=== PATIENT | male | born 1980 | race Two or more races ===

== ENCOUNTER 2018-04-05 01:19 | Inpatient (IN) | payer MEDICAID ==
[~2018-04-05] VITALS: Ht 167.6 cm; Wt 125.6 kg
[2018-04-05] MEDS ORDERED: LURA20TA PO (02:23)
[2018-04-05] MEDS ORDERED: TRAZ-219 PO (02:23)
[2018-04-05 04:21] LABS: BASOPHILS % (AUTO) 0.8 % (0.0-2.0); EOSINOPHILS % (AUTO) 0.9 % (1.0-6.0); HEMATOCRIT 46.2 % (41-53); HEMOGLOBIN 16.2 g/dL (13.5-17.5); LYMPHOCYTES # (AUTO) 1.5 K/uL (1.0-4.8); LYMPHOCYTES % (AUTO) 21.8 % (22.0-44.0); MEAN CORPUSCULAR HEMOGLOBIN 32.3 pg (26.0-34.0); MEAN CORPUSCULAR HGB CONC 35.1 G/dL (31.0-37.0); MEAN CORPUSCULAR VOLUME 92 fL (80-100); MONOCYTES # (AUTO) 0.4 K/uL (0.1-1.0); MONOCYTES % (AUTO) 6.4 % (2.0-9.0); NEUTROPHILS # (AUTO) 4.9 K/uL (1.8-7.7); NEUTROPHILS % (AUTO) 70.1 % (40.0-70.0); PLATELET COUNT (AUTO) 185 K/uL (150-450); RED BLOOD CELL COUNT(AUTO) 5.02 MIL/uL (4.50-5.90); RED CELL DISTRIBUTION WIDTH 13.2 % (11.5-14.5)
[2018-04-05 04:32] LABS: ANION GAP 9 mmol/L (8-16); CALCIUM, TOTAL 8.2 mg/dL (8.8-10.5); CARBON DIOXIDE 24 mmol/L (22-29); CHLORIDE 102 mmol/L (98-107); CREATININE 1.02 mg/dL (0.60-1.30); GLOMERULAR FILTR. RATE CALC > 60 mL/min (>60); GLUCOSE,RANDOM 169 mg/dL (70-110); POTASSIUM 3.8 mmol/L (3.5-5.1); SODIUM SERUM 135 mmol/L (136-145); UREA NITROGEN, BLOOD 14 mg/dL (7-18)
[2018-04-05 04:38] LABS: ALANINE AMINOTRANSFERASE 230 U/L (12-78); ALBUMIN 3.9 g/dL (3.4-5.0); ALKALINE PHOSPHATASE 67 U/L (46-116); ASPARTATE AMINOTRANSFERASE 93 U/L (15-37); BILIRUBIN,TOTAL 0.3 mg/dL (0.1-1.0)
[2018-04-05] MEDS ORDERED: HALOPERIDOL LACTATE 5 MG/ML VIAL IM ONE (07:45)
[2018-04-05] MEDS ORDERED: LORazepam 2 MG/ML VIAL IM ONE (07:45)
[2018-04-05] MEDS ORDERED: DiphenhydrAMINE HCL 50 MG/ML VIAL IM ONE (07:45)
[2018-04-05 08:36] LABS: AMPHET/METH SCREEN,URINE NEGATIVE (NEGATIVE); BARBITURATE SCREEN, URINE NEGATIVE (NEGATIVE); BENZODIAZEPINES SCREEN,URINE NEGATIVE (NEGATIVE); CANNABINOID SCREEN,URINE NEGATIVE (NEGATIVE); COCAINE SCREEN,URINE NEGATIVE (NEGATIVE); METHADONE SCREEN, URINE NEGATIVE (NEGATIVE); OPIATE SCREEN,URINE NEGATIVE (NEGATIVE)
[2018-04-05 08:45] LABS: PHENCYCLIDINE SCREEN,URINE NEGATIVE (NEGATIVE)
[2018-04-05] MEDS ORDERED: ZOLPIDEM TARTRATE 10 MG TABLET PO PRN (10:15)
[2018-04-05] MEDS ORDERED: ACETAMINOPHEN 325 MG TABLET PO PRN (10:15)
[2018-04-05] MEDS ORDERED: LORazepam 2 MG TABLET PO PRN (10:15)
[2018-04-05] MEDS ORDERED: HALOPERIDOL 5 MG TABLET PO PRN (10:15)
[2018-04-05 11:24] LABS: APPEARANCE,URINE CLEAR (CLEAR); BILIRUBIN,URINE NEGATIVE (NEGATIVE); GLUCOSE, URINE (UA) 250 mg/dL (NEGATIVE); KETONES,URINE TRACE mg/dL (NEGATIVE); LEUKOCYTE ESTERASE ,URINE NEGATIVE (NEGATIVE); NITRATE,URINE NEGATIVE (NEGATIVE); OCCULT BLOOD,URINE TRACE (NEGATIVE); PH,URINE 5.5 (5.0-8.0); PROTEIN,URINE NEGATIVE (NEGATIVE)
[2018-04-05 11:44] LABS: BACTERIA,URINE Rare /HPF (None Seen); RBC,URINE 0-2 /HPF (0-2); SQUAMOUS EPITHELIAL CELL,UR Few /LPF (None Seen)
[2018-04-05 16:22] VITALS: BP 139/77
[2018-04-05] MEDS: HALOPERIDOL 5 MG TABLET PO PRN (16:32)
[2018-04-05] MEDS: LORazepam 2 MG TABLET PO PRN (16:32)
[2018-04-06 06:24] VITALS: BP 137/85
[2018-04-06 08:18] VITALS: BP 126/73
[2018-04-06 08:36] LABS: BASOPHILS % (AUTO) 0.9 % (0.0-2.0); EOSINOPHILS % (AUTO) 3.9 % (1.0-6.0); HEMATOCRIT 44.3 % (41-53); HEMOGLOBIN 15.9 g/dL (13.5-17.5); LYMPHOCYTES # (AUTO) 1.6 K/uL (1.0-4.8); LYMPHOCYTES % (AUTO) 25.6 % (22.0-44.0); MEAN CORPUSCULAR HGB CONC 35.9 G/dL (31.0-37.0); MEAN CORPUSCULAR VOLUME 92 fL (80-100); MONOCYTES # (AUTO) 0.4 K/uL (0.1-1.0); MONOCYTES % (AUTO) 6.8 % (2.0-9.0); NEUTROPHILS % (AUTO) 62.8 % (40.0-70.0); PLATELET COUNT (AUTO) 169 K/uL (150-450); RED BLOOD CELL COUNT(AUTO) 4.82 MIL/uL (4.50-5.90); RED CELL DISTRIBUTION WIDTH 13.1 % (11.5-14.5)
[2018-04-06 08:54] LABS: HEMOGLOBIN A1C 6.3 % (4.5-6.2)
[2018-04-06 09:14] LABS: ALANINE AMINOTRANSFERASE 203 U/L (12-78); ALBUMIN 3.5 g/dL (3.4-5.0); ALKALINE PHOSPHATASE 62 U/L (46-116); ANION GAP 6 mmol/L (8-16); ASPARTATE AMINOTRANSFERASE 149 U/L (15-37); BILIRUBIN,TOTAL 0.9 mg/dL (0.1-1.0); CALCIUM, TOTAL 8.8 mg/dL (8.8-10.5); CARBON DIOXIDE 28 mmol/L (22-29); CHLORIDE 101 mmol/L (98-107); CHOL/HDL RATIO 5.8 (4.2-7.3); CHOLESTEROL 243 mg/dL (131-200); CREATININE 0.78 mg/dL (0.60-1.30); GLOMERULAR FILTR. RATE CALC > 60 mL/min (>60); GLUCOSE,RANDOM 122 mg/dL (70-110); HDL CHOLESTEROL 42 mg/dL (40-60); LDL CHOL (CALC.) 173 mg/dL (0-130); POTASSIUM 4.1 mmol/L (3.5-5.1); SODIUM SERUM 135 mmol/L (136-145); TRIGLYCERIDES 139 mg/dL (15-150); UREA NITROGEN, BLOOD 11 mg/dL (7-18)
[2018-04-06] MEDS: LORazepam 2 MG TABLET PO PRN ×2 (09:58→16:56)
[2018-04-06] MEDS: HALOPERIDOL 5 MG TABLET PO PRN ×2 (09:58→16:56)
[2018-04-06 12:02] LABS: THYROID STIMULATING HORMONE 147.25 uIU/mL (0.36-3.74)
[2018-04-06 16:00] VITALS: BP 109/70
[2018-04-06] MEDS: ZIPRASIDONE HCL 60 MG CAPSULE PO SCH (16:56)
[2018-04-06 21:43] LABS: GLUCOMETER DEV NAME(LOC) BV3N5; GLUCOSE,POINT OF CARE 115 MG/DL (70-110)
[2018-04-07] MEDS: ZOLPIDEM TARTRATE 10 MG TABLET PO PRN ×2 (02:54→21:57)
[2018-04-07 03:00] VITALS: BP_SYST 67
[2018-04-07] MEDS: MetFORMIN HCL 500 MG TABLET PO SCH (06:22)
[2018-04-07] MEDS: LEVOTHYROXINE SODIUM 150 MCG TABLET PO SCH (06:23)
[2018-04-07 06:24] LABS: GLUCOMETER DEV NAME(LOC) BV3N5; GLUCOSE,POINT OF CARE 130 MG/DL (70-110)
[2018-04-07 08:07] VITALS: BP 140/78
[2018-04-07] MEDS: LORazepam 2 MG TABLET PO PRN (09:02)
[2018-04-07] MEDS: HALOPERIDOL 5 MG TABLET PO PRN (09:02)
[2018-04-07 16:45] VITALS: BP 109/62
[2018-04-07] MEDS: ZIPRASIDONE HCL 60 MG CAPSULE PO SCH (16:45)
[2018-04-08 01:28] VITALS: BP 125/92
[2018-04-08 06:23] LABS: GLUCOMETER DEV NAME(LOC) BV3N5; GLUCOSE,POINT OF CARE 128 MG/DL (70-110)
[2018-04-08] MEDS: MetFORMIN HCL 500 MG TABLET PO SCH (06:27)
[2018-04-08] MEDS: LEVOTHYROXINE SODIUM 150 MCG TABLET PO SCH (06:39)
[2018-04-08 08:13] VITALS: BP 130/76
[2018-04-08] MEDS: LORazepam 2 MG TABLET PO PRN ×2 (08:41→14:53)
[2018-04-08] MEDS: HALOPERIDOL 5 MG TABLET PO PRN ×2 (08:41→14:53)
[2018-04-08 16:08] VITALS: BP 155/73
[2018-04-08] MEDS: ZIPRASIDONE HCL 60 MG CAPSULE PO SCH (16:29)
[2018-04-08 16:54] LABS: GLUCOMETER DEV NAME(LOC) BV3N5; GLUCOSE,POINT OF CARE 169 MG/DL (70-110)
[2018-04-08] MEDS: ZOLPIDEM TARTRATE 10 MG TABLET PO PRN (21:35)
[2018-04-09 06:14] LABS: GLUCOMETER DEV NAME(LOC) BV3N5; GLUCOSE,POINT OF CARE 126 MG/DL (70-110)
[2018-04-09] MEDS: MetFORMIN HCL 500 MG TABLET PO SCH (06:21)
[2018-04-09] MEDS: LEVOTHYROXINE SODIUM 150 MCG TABLET PO SCH (06:21)
[2018-04-09 06:25] VITALS: BP 128/75
[2018-04-09] MEDS: HALOPERIDOL 5 MG TABLET PO PRN ×3 (07:17→18:08)
[2018-04-09] MEDS: LORazepam 2 MG TABLET PO PRN ×3 (07:17→18:08)
[2018-04-09 08:33] VITALS: BP 141/83
[2018-04-09 09:16] LABS: ANION GAP 7 mmol/L (8-16); CALCIUM, TOTAL 8.9 mg/dL (8.8-10.5); CARBON DIOXIDE 29 mmol/L (22-29); CHLORIDE 100 mmol/L (98-107); CREATININE 0.85 mg/dL (0.60-1.30); GLOMERULAR FILTR. RATE CALC > 60 mL/min (>60); GLUCOSE,RANDOM 107 mg/dL (70-110); POTASSIUM 4.2 mmol/L (3.5-5.1); SODIUM SERUM 136 mmol/L (136-145); UREA NITROGEN, BLOOD 10 mg/dL (7-18)
[2018-04-09 16:00] VITALS: BP 127/72
[2018-04-09] MEDS: ZIPRASIDONE HCL 60 MG CAPSULE PO SCH (17:28)
[2018-04-10 00:38] VITALS: BP 118/70
[2018-04-10] MEDS: ZOLPIDEM TARTRATE 10 MG TABLET PO PRN (00:41)
[2018-04-10] MEDS: LORazepam 2 MG TABLET PO PRN ×2 (00:41→09:25)
[2018-04-10 06:19] LABS: GLUCOMETER DEV NAME(LOC) BV3N5; GLUCOSE,POINT OF CARE 119 MG/DL (70-110)
[2018-04-10] MEDS: MetFORMIN HCL 500 MG TABLET PO SCH (06:29)
[2018-04-10] MEDS: LEVOTHYROXINE SODIUM 150 MCG TABLET PO SCH (06:29)
[2018-04-10 08:21] VITALS: BP 121/68
[2018-04-10] MEDS: HALOPERIDOL 5 MG TABLET PO PRN (09:25)
[2018-04-10] MEDS: IBUPROFEN 400 MG TABLET PO PRN (09:38)
[2018-04-10 16:00] VITALS: BP 127/68
[2018-04-10] MEDS: ZIPRASIDONE HCL 60 MG CAPSULE PO SCH (16:31)
[2018-04-10 16:54] LABS: GLUCOMETER DEV NAME(LOC) BV3N5; GLUCOSE,POINT OF CARE 120 MG/DL (70-110)
[2018-04-11] MEDS: LORazepam 2 MG TABLET PO PRN ×4 (00:26→10:49)
[2018-04-11] MEDS: ZOLPIDEM TARTRATE 10 MG TABLET PO PRN (00:27)
[2018-04-11 00:30] VITALS: BP 121/62
[2018-04-11 06:18] LABS: GLUCOMETER DEV NAME(LOC) BV3N5; GLUCOSE,POINT OF CARE 122 MG/DL (70-110)
[2018-04-11] MEDS: LEVOTHYROXINE SODIUM 150 MCG TABLET PO SCH (06:19)
[2018-04-11] MEDS: MetFORMIN HCL 500 MG TABLET PO SCH (06:19)
[2018-04-11] MEDS: IBUPROFEN 400 MG TABLET PO PRN (06:43)
[2018-04-11] MEDS: HALOPERIDOL 5 MG TABLET PO PRN ×3 (06:43→10:49)
[2018-04-11 11:04] VITALS: BP 145/92
[2018-04-11] MEDS ORDERED: ZIPR60CA2 PO (12:19)
[2018-04-11] MEDS ORDERED: METF500T6 PO (12:21)
[2018-04-11] MEDS ORDERED: LEVO150 PO (12:21)
== END 2018-04-11 15:10 | disposition home or self-care (01) | DRG 750 ==
LOC: EMS 01:21 → UNDOADMIN 11:34 → B2S 11:34 → B3A 11:34
DX: F25.0 Schizoaffective disorder, bipolar type (principal); E87.1 Hypo-osmolality and hyponatremia; E03.9 Hypothyroidism, unspecified; E66.9 Obesity, unspecified; G47.00 Insomnia, unspecified; R73.03 Prediabetes; Y90.5 Blood alcohol level of 100-119 mg/100 ml; F10.10 Alcohol abuse, uncomplicated; F19.10 Other psychoactive substance abuse, uncomplicated; F17.210 Nicotine dependence, cigarettes, uncomplicated; R74.0 Nonspecific elevation of levels of transaminase and lactic acid dehydrogenase [LDH]; Z79.899 Other long term (current) drug therapy; Z71.6 Tobacco abuse counseling; Z68.41 Body mass index [BMI] 40.0-44.9, adult; Z71.41 Alcohol abuse counseling and surveillance of alcoholic
CPT/HCPCS: 80074; 83036; 84439; 84443; 99285; G0480

== ENCOUNTER 2018-04-13 16:30 | Inpatient (IN) | payer MEDICAID ==
[~2018-04-13] VITALS: Ht 167.6 cm; Wt 122.5 kg
[~2018-04-13 16:30] MED LIST: LEVO150 PO; METF500T6 PO; ZIPR60CA2 PO
[2018-04-13 19:03] VITALS: BP 135/76
[2018-04-13 20:35] VITALS: BP 119/74
[2018-04-13] MEDS ORDERED: PNEUMOCOCCAL VACCINE POLYVALENT 0.5 ML VIAL [PPSV23] IM ONE (21:00)
[2018-04-13] MEDS: LORazepam 2 MG TABLET PO PRN (21:18)
[2018-04-13] MEDS: HALOPERIDOL 5 MG TABLET PO PRN (21:18)
[2018-04-13 21:44] LABS: GLUCOMETER DEV NAME(LOC) BV2S 2; GLUCOSE,POINT OF CARE 125 MG/DL (70-110)
[2018-04-13] MEDS ORDERED: MAGNESIUM HYDROXIDE SUSPENSION 30 ML UDCUP PO PRN (21:45)
[2018-04-13] MEDS ORDERED: ONDANSETRON HCL 4 MG TABLET PO PRN (21:45)
[2018-04-13] MEDS ORDERED: ACETAMINOPHEN 325 MG TABLET PO PRN (21:45)
[2018-04-13] MEDS ORDERED: DOCUSATE SODIUM 100 MG CAPSULE PO PRN (21:45)
[2018-04-13] MEDS ORDERED: ALBUTEROL SULFATE HFA 90 MCG/PUFF 8 GM INHALER IH PRN (21:45)
[2018-04-13] MEDS ORDERED: LOPERAMIDE HCL 2 MG CAPSULE PO PRN (21:45)
[2018-04-13] MEDS ORDERED: PETROLATUM,WHITE 71 GM JELLY TP PRN (21:45)
[2018-04-13] MEDS ORDERED: MAG HYDROX/AL HYDROX/SIMETH ES 30 ML SUSPENSION UDCUP PO PRN (21:45)
[2018-04-13] MEDS ORDERED: IBUPROFEN 400 MG TABLET PO PRN (21:45)
[2018-04-13] MEDS ORDERED: CloNIDine HCL 0.1 MG TABLET PO PRN (21:45)
[2018-04-13] MEDS: ZOLPIDEM TARTRATE 10 MG TABLET PO PRN (21:49)
[2018-04-14 04:26] VITALS: BP 116/76
[2018-04-14 06:29] LABS: GLUCOMETER DEV NAME(LOC) BV2S 2; GLUCOSE,POINT OF CARE 103 MG/DL (70-110)
[2018-04-14] MEDS: MetFORMIN HCL 500 MG TABLET PO SCH (06:41)
[2018-04-14] MEDS: LEVOTHYROXINE SODIUM 150 MCG TABLET PO SCH (06:41)
[2018-04-14 08:20] VITALS: BP 118/60
[2018-04-14] MEDS: NICOTINE 7 MG/24 HOUR PATCH TD SCH (08:39)
[2018-04-14 08:43] LABS: BASOPHILS % (AUTO) 0.7 % (0.0-2.0); EOSINOPHILS % (AUTO) 3.3 % (1.0-6.0); HEMATOCRIT 46.3 % (41-53); HEMOGLOBIN 16.4 g/dL (13.5-17.5); LYMPHOCYTES # (AUTO) 1.9 K/uL (1.0-4.8); LYMPHOCYTES % (AUTO) 26.8 % (22.0-44.0); MEAN CORPUSCULAR HGB CONC 35.6 G/dL (31.0-37.0); MEAN CORPUSCULAR VOLUME 93 fL (80-100); MONOCYTES # (AUTO) 0.5 K/uL (0.1-1.0); MONOCYTES % (AUTO) 7.4 % (2.0-9.0); NEUTROPHILS # (AUTO) 4.4 K/uL (1.8-7.7); NEUTROPHILS % (AUTO) 61.8 % (40.0-70.0); PLATELET COUNT (AUTO) 196 K/uL (150-450); RED BLOOD CELL COUNT(AUTO) 4.98 MIL/uL (4.50-5.90); RED CELL DISTRIBUTION WIDTH 13.2 % (11.5-14.5)
[2018-04-14] MEDS: LORazepam 2 MG TABLET PO PRN (08:51)
[2018-04-14] MEDS: HALOPERIDOL 5 MG TABLET PO PRN (08:51)
[2018-04-14 09:12] LABS: HEMOGLOBIN A1C 6.1 % (4.5-6.2)
[2018-04-14 09:24] LABS: ALANINE AMINOTRANSFERASE 560 U/L (12-78); ALBUMIN 3.8 g/dL (3.4-5.0); ALKALINE PHOSPHATASE 73 U/L (46-116); ANION GAP 8 mmol/L (8-16); ASPARTATE AMINOTRANSFERASE 208 U/L (15-37); BILIRUBIN,TOTAL 0.8 mg/dL (0.1-1.0); CALCIUM, TOTAL 8.8 mg/dL (8.8-10.5); CARBON DIOXIDE 27 mmol/L (22-29); CHLORIDE 99 mmol/L (98-107); CHOL/HDL RATIO 4.7 (4.2-7.3); CHOLESTEROL 177 mg/dL (131-200); CREATININE 0.86 mg/dL (0.60-1.30); FREE T4 (FREE THYROXINE) 0.87 ng/dL (0.76-1.46); GLOMERULAR FILTR. RATE CALC > 60 mL/min (>60); GLUCOSE,RANDOM 107 mg/dL (70-110); HDL CHOLESTEROL 38 mg/dL (40-60); LDL CHOL (CALC.) 119 mg/dL (0-130); POTASSIUM 4.1 mmol/L (3.5-5.1); SODIUM SERUM 134 mmol/L (136-145); THYROID STIMULATING HORMONE 46.32 uIU/mL (0.36-3.74); TOTAL PROTEIN, SERUM 8.1 g/dL (6.4-8.2); TRIGLYCERIDES 101 mg/dL (15-150); UREA NITROGEN, BLOOD 12 mg/dL (7-18)
[2018-04-14 16:09] VITALS: BP 109/77
[2018-04-14] MEDS: ZIPRASIDONE HCL 60 MG CAPSULE PO SCH (16:32)
[2018-04-14 17:38] LABS: GLUCOMETER DEV NAME(LOC) BV2S 2; GLUCOSE,POINT OF CARE 133 MG/DL (70-110)
[2018-04-15 06:19] LABS: GLUCOMETER DEV NAME(LOC) BV2S 2; GLUCOSE,POINT OF CARE 98 MG/DL (70-110)
[2018-04-15] MEDS: LEVOTHYROXINE SODIUM 150 MCG TABLET PO SCH (06:35)
[2018-04-15] MEDS: MetFORMIN HCL 500 MG TABLET PO SCH (06:37)
[2018-04-15 06:41] VITALS: BP 138/77
[2018-04-15 08:42] VITALS: BP 117/71
[2018-04-15] MEDS: NICOTINE 7 MG/24 HOUR PATCH TD SCH (09:00)
[2018-04-15] MEDS: LORazepam 2 MG TABLET PO PRN (11:56)
[2018-04-15] MEDS: ZIPRASIDONE HCL 60 MG CAPSULE PO SCH (16:28)
[2018-04-15] MEDS: HALOPERIDOL 5 MG TABLET PO PRN (16:28)
[2018-04-15 16:53] LABS: GLUCOMETER DEV NAME(LOC) BV2S 2; GLUCOSE,POINT OF CARE 89 MG/DL (70-110)
[2018-04-15 18:13] VITALS: BP 130/71
[2018-04-15] MEDS: ZOLPIDEM TARTRATE 10 MG TABLET PO PRN (20:32)
[2018-04-16 06:10] VITALS: BP 120/76
[2018-04-16 07:03] LABS: GLUCOMETER DEV NAME(LOC) BV2S 2; GLUCOSE,POINT OF CARE 113 MG/DL (70-110)
[2018-04-16] MEDS: MetFORMIN HCL 500 MG TABLET PO SCH (07:09)
[2018-04-16] MEDS: LEVOTHYROXINE SODIUM 150 MCG TABLET PO SCH (07:09)
[2018-04-16] MEDS: NICOTINE 7 MG/24 HOUR PATCH TD SCH (08:27)
[2018-04-16] MEDS: LORazepam 2 MG TABLET PO PRN ×2 (08:31→16:24)
[2018-04-16 08:35] VITALS: BP 125/81
[2018-04-16] MEDS: HALOPERIDOL 5 MG TABLET PO PRN (12:29)
[2018-04-16 16:34] VITALS: BP 110/77
[2018-04-16 16:38] LABS: GLUCOMETER DEV NAME(LOC) BV2S 2; GLUCOSE,POINT OF CARE 108 MG/DL (70-110)
[2018-04-16] MEDS: ZIPRASIDONE HCL 60 MG CAPSULE PO SCH (17:08)
[2018-04-16] MEDS: ZOLPIDEM TARTRATE 10 MG TABLET PO PRN (22:31)
[2018-04-17 01:30] VITALS: BP 114/78
[2018-04-17 06:18] LABS: GLUCOMETER DEV NAME(LOC) BV2S 2; GLUCOSE,POINT OF CARE 110 MG/DL (70-110)
[2018-04-17] MEDS: LEVOTHYROXINE SODIUM 150 MCG TABLET PO SCH (06:36)
[2018-04-17] MEDS: MetFORMIN HCL 500 MG TABLET PO SCH (06:36)
[2018-04-17 07:31] LABS: ALBUMIN 3.7 g/dL (3.4-5.0); BILIRUBIN,DIRECT 0.2 mg/dL (0.00-0.20); BILIRUBIN,TOTAL 0.7 mg/dL (0.1-1.0); TOTAL PROTEIN, SERUM 7.5 g/dL (6.4-8.2)
[2018-04-17 08:37] VITALS: BP 119/73
[2018-04-17] MEDS: NICOTINE 7 MG/24 HOUR PATCH TD SCH (08:50)
[2018-04-17] MEDS: HALOPERIDOL 5 MG TABLET PO PRN ×2 (10:23→15:57)
[2018-04-17] MEDS: LORazepam 2 MG TABLET PO PRN ×2 (10:23→15:57)
[2018-04-17 11:43] LABS: GLUCOMETER DEV NAME(LOC) BV2S 2; GLUCOSE,POINT OF CARE 83 MG/DL (70-110)
[2018-04-17] MEDS: ZIPRASIDONE HCL 60 MG CAPSULE PO SCH (16:08)
[2018-04-17 16:10] VITALS: BP 111/67
[2018-04-17 16:54] LABS: GLUCOMETER DEV NAME(LOC) BV2S 2; GLUCOSE,POINT OF CARE 108 MG/DL (70-110)
[2018-04-17] MEDS: ZOLPIDEM TARTRATE 10 MG TABLET PO PRN (20:43)
[2018-04-17] MEDS: GABAPENTIN 300 MG CAPSULE PO SCH (20:43)
[2018-04-18 05:44] VITALS: BP 122/70
[2018-04-18 06:09] LABS: GLUCOMETER DEV NAME(LOC) BV2S 2; GLUCOSE,POINT OF CARE 112 MG/DL (70-110)
[2018-04-18] MEDS: LEVOTHYROXINE SODIUM 150 MCG TABLET PO SCH (07:00)
[2018-04-18] MEDS: MetFORMIN HCL 500 MG TABLET PO SCH (07:00)
[2018-04-18 08:00] VITALS: BP 139/78
[2018-04-18] MEDS: HALOPERIDOL 5 MG TABLET PO PRN ×2 (08:37→13:08)
[2018-04-18] MEDS: NICOTINE 7 MG/24 HOUR PATCH TD SCH (08:37)
[2018-04-18] MEDS: LORazepam 2 MG TABLET PO PRN ×3 (08:37→17:13)
[2018-04-18 16:24] LABS: GLUCOMETER DEV NAME(LOC) BV2S 2; GLUCOSE,POINT OF CARE 167 MG/DL (70-110)
[2018-04-18] MEDS: ZIPRASIDONE HCL 60 MG CAPSULE PO SCH (17:13)
[2018-04-18 19:23] VITALS: BP 124/74
[2018-04-18] MEDS: GABAPENTIN 300 MG CAPSULE PO SCH (20:29)
[2018-04-18] MEDS: ZOLPIDEM TARTRATE 10 MG TABLET PO PRN (20:38)
[2018-04-18 21:13] LABS: GLUCOMETER DEV NAME(LOC) BV2S 2; GLUCOSE,POINT OF CARE 100 MG/DL (70-110)
[2018-04-19 06:19] LABS: GLUCOMETER DEV NAME(LOC) BV2S 2; GLUCOSE,POINT OF CARE 118 MG/DL (70-110)
[2018-04-19] MEDS: LEVOTHYROXINE SODIUM 150 MCG TABLET PO SCH (06:30)
[2018-04-19] MEDS: MetFORMIN HCL 500 MG TABLET PO SCH (06:30)
[2018-04-19] MEDS: LORazepam 2 MG TABLET PO PRN ×2 (06:30→16:12)
[2018-04-19 06:40] VITALS: BP 117/73
[2018-04-19] MEDS: NICOTINE 7 MG/24 HOUR PATCH TD SCH (08:10)
[2018-04-19 08:30] VITALS: BP 121/76
[2018-04-19] MEDS: HALOPERIDOL 5 MG TABLET PO PRN ×2 (10:43→16:12)
[2018-04-19 16:09] VITALS: BP 120/77
[2018-04-19 16:48] LABS: GLUCOMETER DEV NAME(LOC) BV2S 2; GLUCOSE,POINT OF CARE 87 MG/DL (70-110)
[2018-04-19] MEDS: ZIPRASIDONE HCL 60 MG CAPSULE PO SCH (17:31)
[2018-04-19] MEDS: GABAPENTIN 300 MG CAPSULE PO SCH (20:04)
[2018-04-19] MEDS: ZOLPIDEM TARTRATE 10 MG TABLET PO PRN (20:04)
[2018-04-20 02:18] VITALS: BP 115/70
[2018-04-20] MEDS: LEVOTHYROXINE SODIUM 150 MCG TABLET PO SCH (06:22)
[2018-04-20 06:34] LABS: GLUCOMETER DEV NAME(LOC) BV2S 2; GLUCOSE,POINT OF CARE 93 MG/DL (70-110)
[2018-04-20] MEDS: MetFORMIN HCL 500 MG TABLET PO SCH (07:03)
[2018-04-20] MEDS: NICOTINE 7 MG/24 HOUR PATCH TD SCH (08:37)
[2018-04-20 08:49] VITALS: BP 137/79
[2018-04-20] MEDS: HALOPERIDOL 5 MG TABLET PO PRN (09:10)
[2018-04-20] MEDS: LORazepam 2 MG TABLET PO PRN (09:10)
[2018-04-20 16:10] VITALS: BP 117/75
[2018-04-20 16:49] LABS: GLUCOMETER DEV NAME(LOC) BV2S 2; GLUCOSE,POINT OF CARE 118 MG/DL (70-110)
[2018-04-20] MEDS: ZIPRASIDONE HCL 60 MG CAPSULE PO SCH (17:17)
[2018-04-20 21:18] LABS: GLUCOMETER DEV NAME(LOC) BV2S 2; GLUCOSE,POINT OF CARE 101 MG/DL (70-110)
[2018-04-20] MEDS: ZOLPIDEM TARTRATE 10 MG TABLET PO PRN (21:32)
[2018-04-20] MEDS: GABAPENTIN 300 MG CAPSULE PO SCH (21:32)
[2018-04-21 06:02] VITALS: BP 119/80
[2018-04-21 06:23] LABS: GLUCOMETER DEV NAME(LOC) BV2S 2; GLUCOSE,POINT OF CARE 108 MG/DL (70-110)
[2018-04-21] MEDS: LEVOTHYROXINE SODIUM 150 MCG TABLET PO SCH (06:31)
[2018-04-21] MEDS: MetFORMIN HCL 500 MG TABLET PO SCH (06:32)
[2018-04-21 08:21] VITALS: BP 122/79
[2018-04-21] MEDS: NICOTINE 7 MG/24 HOUR PATCH TD SCH (08:43)
[2018-04-21] MEDS: HALOPERIDOL 5 MG TABLET PO PRN (08:44)
[2018-04-21] MEDS: LORazepam 2 MG TABLET PO PRN (08:44)
[2018-04-21 16:16] VITALS: BP 117/78
[2018-04-21 16:19] LABS: GLUCOMETER DEV NAME(LOC) BV2S 2; GLUCOSE,POINT OF CARE 96 MG/DL (70-110)
[2018-04-21] MEDS: ZIPRASIDONE HCL 60 MG CAPSULE PO SCH (16:45)
[2018-04-21] MEDS: GABAPENTIN 300 MG CAPSULE PO SCH (21:11)
[2018-04-21] MEDS: ZOLPIDEM TARTRATE 10 MG TABLET PO PRN (21:11)
[2018-04-22 02:37] VITALS: BP 120/79
[2018-04-22] MEDS: LORazepam 2 MG TABLET PO PRN ×3 (03:50→13:06)
[2018-04-22] MEDS: MetFORMIN HCL 500 MG TABLET PO SCH (06:50)
[2018-04-22] MEDS: LEVOTHYROXINE SODIUM 150 MCG TABLET PO SCH (06:50)
[2018-04-22 06:53] LABS: GLUCOMETER DEV NAME(LOC) BV2S 2; GLUCOSE,POINT OF CARE 135 MG/DL (70-110)
[2018-04-22] MEDS: HALOPERIDOL 5 MG TABLET PO PRN ×2 (08:42→13:06)
[2018-04-22] MEDS: NICOTINE 7 MG/24 HOUR PATCH TD SCH (08:43)
[2018-04-22 08:46] VITALS: BP 124/80
[2018-04-22 16:10] VITALS: BP 123/84
[2018-04-22] MEDS: ZIPRASIDONE HCL 60 MG CAPSULE PO SCH (16:39)
[2018-04-22 16:44] LABS: GLUCOMETER DEV NAME(LOC) BV2S 2; GLUCOSE,POINT OF CARE 111 MG/DL (70-110)
[2018-04-22] MEDS: ZOLPIDEM TARTRATE 10 MG TABLET PO PRN (20:21)
[2018-04-22] MEDS: GABAPENTIN 300 MG CAPSULE PO SCH (20:21)
[2018-04-23 04:35] VITALS: BP 121/81
[2018-04-23] MEDS: HALOPERIDOL 5 MG TABLET PO PRN (04:51)
[2018-04-23] MEDS: LORazepam 2 MG TABLET PO PRN (04:51)
[2018-04-23] MEDS: LEVOTHYROXINE SODIUM 150 MCG TABLET PO SCH (06:32)
[2018-04-23] MEDS: MetFORMIN HCL 500 MG TABLET PO SCH (06:32)
[2018-04-23 06:38] LABS: GLUCOMETER DEV NAME(LOC) BV2S 2; GLUCOSE,POINT OF CARE 109 MG/DL (70-110)
[2018-04-23 08:00] VITALS: BP 114/78
[2018-04-23] MEDS: NICOTINE 7 MG/24 HOUR PATCH TD SCH (08:37)
[2018-04-23] MEDS ORDERED: GABA-531 PO (09:04)
== END 2018-04-23 13:05 | disposition home or self-care (01) | DRG 750 ==
LOC: B2S 19:36
PROC: 3E0234Z Introduction of Serum, Toxoid and Vaccine into Muscle, Percutaneous Approach (ICD-10-PCS; principal; 2018-04-14)
DX: F25.1 Schizoaffective disorder, depressive type (principal); R45.851 Suicidal ideations; E87.1 Hypo-osmolality and hyponatremia; E11.9 Type 2 diabetes mellitus without complications; E03.9 Hypothyroidism, unspecified; F41.9 Anxiety disorder, unspecified; R74.0 Nonspecific elevation of levels of transaminase and lactic acid dehydrogenase [LDH]; G47.00 Insomnia, unspecified; Z79.899 Other long term (current) drug therapy; Z23 Encounter for immunization
CPT/HCPCS: 80074; 83036; 84439; 84443; 87081; 90471